=== PATIENT | female | born 2000 | race Caucasian/White ===

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

== ENCOUNTER 2021-02-16 22:03 | Observation (INO) ==
--- NOTE | 2021-02-16 22:23 | Emergency Department Note ---
History of Present Illness General Chief complaint: Illness Stated complaint: KIDNEY INFECTION, UTI, FEVER Time Seen by Provider: 02/16/21 22:09 Source: patient Mode of arrival: ambulatory Limitations: no limitations History of Present Illness Provider complaint: "I have a kidney infection" Maximum Pain Intensity: 8 This 20-year-old female patient presents to the emergency department today via private vehicle accompanied by her mother for evaluation of "I have a kidney infection". The patient states she was here earlier today and diagnosed with a urinary tract infection and pyelonephritis. She states admission was recommended, but she declined at that time and after IV hydration and antibiotics, was discharged on p.o. Bactrim. The patient states she is tolerating p.o. fluids without difficulty. She states this evening, she has experienced a fever of 104.2 F. She did take Tylenol approximately 1 hour ago and feels that the fever is breaking. The patient states she has been experiencing a headache and some abdominal cramping. Last menstrual period is unknown due to an IUD. Last bowel movement was 2 days ago. Patient reports ongoing back and flank pain. Patient denies any chest pain, dyspnea, dizziness, numbness, tingling, weakness, nausea, vomiting. Home Medications Medication Instructions Recorded Confirmed Type fluoxetine 10 mg PO HS 02/16/21 02/16/21 History levonorgestrel [Mirena] 20 mcg INTRAUTERINE CONTINOUS 02/16/21 02/16/21 History sulfamethoxazole-trimethoprim 1 tab PO BID 12 Days #24 tab 02/16/21 02/16/21 Rx [Bactrim DS] topiramate 50 mg PO HS 02/16/21 02/16/21 History Allergies Allergy/AdvReac Type Severity Reaction Status Date / Time No Known Allergies Allergy Verified 02/16/21 22:42 Past Med/Surg History Medical History History of anemia History of deviated nasal septum History of eustachian tube dysfunction Sore throat Upper respiratory infection Surgical History S/P correction of deviated nasal septum S/P tonsillectomy and adenoidectomy Family History (Updated 06/09/20 @ 11:15 by Lala Akers) Grandfather (Maternal) Colorectal cancer, Onset Age: 50 Family/Other Ovarian cancer maternal great grandmother Father No significant medical problems Mother No significant medical problems Other No pertinent family history Denies family history of Breast cancer Social History Smoking Status: Never smoker Hx Alcohol Use: No Hx Substance Use: No Preferred Language: Arabic Communication Ability: Effective marital status: Single Current Living Situation: Family Current Living Situation Comment: LIVES WITH MOM,DAD AND SISTER Feels Safe at Home: Yes Childhood Exposure to Second-Hand Smoke: No Dental Care, Regularly: Yes Seatbelt Use: always Sunscreen Use: Yes Review of Systems A total of 10 systems reviewed and were otherwise negative Physical Exam Vital Signs Vital Signs - 24 hr 02/16/21 22:06 02/16/21 22:26 02/16/21 23:06 Temperature 36.6 C Temperature Source Temporal Artery Scan Pulse Rate 91 H Pulse Rate [Finger] 96 H Respiratory Rate 18 20 Respiratory Effort / Characteristics Non-Labored Spontaneous Non-Labored Spontaneous Respiratory Depth Normal Normal Blood Pressure 99/48 L Blood Pressure [Right Arm] 99/57 L Blood Pressure Mean 65 Blood Pressure Mean [Right Arm] 71 Pulse Oximetry 98 98 Oxygen Delivery Method Room Air Room Air Room Air Sepsis Recent Fever Within 48 Hours No Sepsis New/Unexplained Change in Mental Status No Sepsis Action Taken by Nursing No Action Required VITALS: Vitals are noted on the nurse's note and reviewed by myself. Patient is hypotensive. Heart rate 91. Temp 36.6 C. GENERAL: This is a 20-year-old white female, in no acute distress, nondiaphoretic, well-developed well-nourished. SKIN: The skin was without rashes, erythema, edema, or bruising. There is no tenting of the skin. Capillary refill less than 2 seconds. HEAD: Normocephalic atraumatic. EYES: Conjunctivae without injection, sclerae without icterus. NECK: Supple without nuchal rigidity. No lymphadenopathy. No JVD. HEART: Regular rate and rhythm without murmurs gallops or rubs. LUNGS: Clear to auscultation bilaterally without wheezes, rales or rhonchi. No retractions or accessory muscle use. ABDOMEN: Positive bowel sounds x 4. Mild suprapubic tenderness palpation. Abdomen otherwise positive bilateral CVA tenderness. Soft, nontender, without masses or organomegaly. Gonzales sign negative. No guarding or rebound tendernes s. MUSCULOSKELETAL: No muscle atrophy, erythema, or edema noted. Full range of motion without joint tenderness in all extremities. No tenderness to palpation. Normal gait. Strength 5/5 throughout. NEURO: Patient was alert and oriented to person place and time. No focal neurological deficits. Course Course The patient was seen and evaluated as above. An order was placed for continuous cardiac monitoring. The monitor shows a normal sinus rhythm at a rate of 91 bpm. Previous medical records reviewed IV access obtained, labs drawn. Patient medicated with IV Toradol. Labs reviewed by myself. I discussed case with the ED foster care case manager. I discussed case with Dr. Duffy, [facility] hospitalist physician. Please see hospitalist dictation regarding ongoing management care of this patient. Administered Medications Sodium Chloride (Nss 1000ml) 1,000 mls @ 999 mls/hr IV .[id number] [id number] Stop: 02/17/21 00:00 Last Admin: 02/16/21 23:07 Dose: 999 mls/hr Documented by: [id number] Discontinued Medications Ketorolac Tromethamine (Ketorolac Tromethamine 15 Mg/Ml Vial) 15 mg IV NOW STA Stop: 02/16/21 22:26 Last Admin: 02/16/21 22:32 Dose: 15 mg Documented by: [id number] Medical Decision Making Differential Diagnosis Renal colic, UTI, appendicitis, diverticulitis, mesenteric ischemia, aortic pathology, infections, inflammatory bowel disease, PUD, biliary pathology, as well as other pathologies. Medical Records Attestation: I reviewed the patient's medical records. Home Medications Current Medication List: was personally reviewed by me Laboratory Data Attestation: I reviewed the patient's lab results. Leukocytosis of 19,000 with shift. Mild anemia with a hemoglobin of 10.5 and hematocrit of 30.8. This is suspected to be associated with fluid resuscitation completed earlier in the day. Renal, hepatic function electrolytes without significant abnormality. Urinalysis positive for 2+ leukocyte esterase, bacteria, but does appear to be contaminated specimen. Covid testing negative. Result diagrams: 02/16/21 22:13 02/16/21 22:13 Lab Results 02/16/21 02/16/21 02/16/21 Range/Units 22:13 22:13 22:29 WBC 19.06 H (4.8-10.8) K/uL RBC 3.64 L (4.2-5.4) M/uL Hgb 10.5 L D (12.0-16.0) g/dL Hct 30.8 L (37-47) % MCV 84.6 (80-100) fL MCH 28.8 (25-34) pg MCHC 34.1 (32-36) g/dL RDW Std Deviation 42.0 (36.4-46.3) fL RDW Coeff of Mayito 13.5 (11.5-14.5) % Plt Count 219 (130-400) K/uL MPV 9.4 (7.4-10.4) fL Immature Gran % (Auto) 0.3 % Neut % (Auto) 81.4 % Lymph % (Auto) 7.8 % Maury % (Auto) 10.4 % Eos % (Auto) 0.0 % Baso % (Auto) 0.1 % Neut # (Auto) 15.52 H (1.4-6.5) K/uL Lymph # (Auto) 1.48 (1.2-3.4) K/uL Maury # (Auto) 1.99 H (0.11-0.59) K/uL Eos # (Auto) 0.00 (0-0.5) K/uL Baso # (Auto) 0.02 (0-0.2) K/uL Immature Gran # (Auto) 0.05 H (0.00-0.02) K/uL Sodium 134 L (136-145) mmol/L Potassium 3.2 L (3.5-5.1) mmol/L Chloride 107 (98-107) mmol/L Carbon Dioxide 21 (21-32) mmol/L Anion Gap 6.0 (3-11) BUN 8 (7-18) mg/dl Creatinine 0.84 (0.6-1.2) mg/dl Est Cr Clr Drug Dosing 108.7 ml/min Est GFR ( Amer) 116.8 Est GFR (Non-Af Amer) 100.8 BUN/Creatinine Ratio 9.7 L (10-20) Glucose 123 H (70-99) mg/dl Calcium 8.1 L (8.5-10.1) mg/dl Total Bilirubin 0.6 (0.2-1) mg/dl AST 10 L (15-37) U/L ALT 11 L (12-78) U/L Alkaline Phosphatase 85 (45-117) U/L Total Protein 6.6 D (6.4-8.2) gm/dl Albumin 2.6 L (3.4-5.0) gm/dl Globulin 4.0 (2.5-4.0) gm/dl Albumin/Globulin Ratio 0.6 L (0.9-2) Urine Color Yellow Urine Appearance Clear (Clear) Urine pH 7.0 (4.5-7.5) Ur Specific Sultana 1.004 (1.000-1.030) Urine Protein Negative (Negative) Urine Glucose (UA) Negative (Negative) Urine Ketones Negative (Negative) Urine Blood Negative (Negative) Urine Nitrite Negative (Negative) Urine Bilirubin Negative (Negative) Urine Urobilinogen Negative (Negative) Ur Leukocyte Esterase 2+ H (Negative) Urine RBC 0-4 (0-4) /hpf Urine WBC 5-10 H (0-5) /hpf Ur Epithelial Cells 5-10 H (0-5) /lpf Urine Bacteria 2+ H (Negative) COVID-19 Eval Order SARS-CoV-2 (PCR) (Negative) Influenza Type A (PCR) (Neg) Influenza Type B (PCR) (Neg) RSV (RT-PCR) (Neg) 02/16/21 02/16/21 Range/Units 22:34 22:34 WBC (4.8-10.8) K/uL RBC (4.2-5.4) M/uL Hgb (12.0-16.0) g/dL Hct (37-47) % MCV (80-100) fL MCH (25-34) pg MCHC (32-36) g/dL RDW Std Deviation (36.4-46.3) fL RDW Coeff of Mayito (11.5-14.5) % Plt Count (130-400) K/uL MPV (7.4-10.4) fL Immature Gran % (Auto) % Neut % (Auto) % Lymph % (Auto) % Maury % (Auto) % Eos % (Auto) % Baso % (Auto) % Neut # (Auto) (1.4-6.5) K/uL Lymph # (Auto) (1.2-3.4) K/uL Maury # (Auto) (0.11-0.59) K/uL Eos # (Auto) (0-0.5) K/uL Baso # (Auto) (0-0.2) K/uL Immature Gran # (Auto) (0.00-0.02) K/uL Sodium (136-145) mmol/L Potassium (3.5-5.1) mmol/L Chloride (98-107) mmol/L Carbon Dioxide (21-32) mmol/L Anion Gap (3-11) BUN (7-18) mg/dl Creatinine (0.6-1.2) mg/dl Est Cr Clr Drug Dosing ml/min Est GFR ( Amer) Est GFR (Non-Af Amer) BUN/Creatinine Ratio (10-20) Glucose (70-99) mg/dl Calcium (8.5-10.1) mg/dl Total Bilirubin (0.2-1) mg/dl AST (15-37) U/L ALT (12-78) U/L Alkaline Phosphatase (45-117) U/L Total Protein (6.4-8.2) gm/dl Albumin (3.4-5.0) gm/dl Globulin (2.5-4.0) gm/dl Albumin/Globulin Ratio (0.9-2) Urine Color Urine Appearance (Clear) Urine pH (4.5-7.5) Ur Specific Sultana (1.000-1.030) Urine Protein (Negative) Urine Glucose (UA) (Negative) Urine Ketones (Negative) Urine Blood (Negative) Urine Nitrite (Negative) Urine Bilirubin (Negative) Urine Urobilinogen (Negative) Ur Leukocyte Esterase (Negative) Urine RBC (0-4) /hpf Urine WBC (0-5) /hpf Ur Epithelial Cells (0-5) /lpf Urine Bacteria (Negative) COVID-19 Eval Order CovFluRsv at [facility] SARS-CoV-2 (PCR) NEGATIVE (Negative) Influenza Type A (PCR) Negative (Neg) Influenza Type B (PCR) Negative (Neg) RSV (RT-PCR) Negative (Neg) Blood Pressure Blood Pressure Findings: Low blood pressure MDM Narrative This 20-year-old female patient presents to the emergency department today for evaluation of ongoing fever in the setting of pyelonephritis. She was here in the emergency department earlier today and diagnosed with pyelonephritis. She decided to go home to be managed as an outpatient, but when her fever had 104.2 F, she elected to come back to the emergency department for admission. Upon arrival to the ED, the patient blood pressure was 99/48. She was not tachycardic. She appeared well. She did have ongoing flank pain and lower abdominal pain. Patient had received 3 L of IV fluids earlier in the day at her previous ED visit. S she was treated while in the emergency department earlier today with IV Rocephin. He was medicated in the ED with Toradol to help with her headache and ongoing pain. Patient will be admitted to the [facility] hospitalist service. Please see hospitalist dictation regarding ongoing management and care of this patient. The chart was completed utilizing [employer] Speech voice recognition software. Grammatical errors, random word insertions, pronoun errors, and incomplete sentences are an occasional consequence of this system due to software limitat ions, ambient noise, and hardware issues. Any formal questions or concerns about the content, text, or information contained within the body of this dictation should be directly addressed to the provider for clarification. Impression & Plan Pyelonephritis, Sepsis Discharge Plan Visit Data Chief Complaint: Illness Stated Complaint: KIDNEY INFECTION, UTI, FEVER ED Provider: Zoran Ackerman ED Midlevel Provider: Leilani Butterfield Discharge Problem: Pyelonephritis, Sepsis Patient Disposition: Admitted As Inpatient Discharge Instructions Interventions: ED Discharge Assessment Last Done: 02/16/21 23:32 Forms Stand Alone Forms: My [facility] labs Prescriptions Prescriptions: No Action topiramate 25 mg tablet 50 mg PO HS RF: 0 fluoxetine 10 mg tablet 10 mg PO HS RF: 0 sulfamethoxazole-trimethoprim [Bactrim DS] 800-160 mg tablet 1 tab PO BID 12 Days Qty: 24 RF: 0 Mirena 20 mcg/24 hours (6 yrs) 52 mg Intrauterine Device 20 mcg INTRAUTERINE CONTINOUS RF: 0 Referrals Referrals: Madeleine Moise MD [Primary Care Provider] - Discharge Problem: Sepsis Qualifiers: Sepsis type: sepsis due to unspecified organism Sepsis acute organ dysfunction status: without acute organ dysfunction Qualified Code(s): A41.9 - Sepsis, unspecified organism
[2021-02-16] MEDS ORDERED: KETOROLAC TROMETHAMINE 15 MG/ML VIAL IV STA (22:25)
[2021-02-16 22:41] LABS: Appearance Urine Clear (Clear); Bilirubin Urine Negative (Negative); Blood Urine Negative (Negative); Color Urine Yellow; Glucose Urine UA Negative (Negative); Ketones Urine Negative (Negative); Leukocyte Esterase Urine 2+ (Negative); Nitrite Urine Negative (Negative); Protein Urine Negative (Negative); Specific Gravity Urine 1.004 (1.000-1.030); Urobilinogen Urine Negative (Negative)
[2021-02-16 22:51] LABS: Albumin Level 2.6 gm/dl (3.4-5.0); BUN Creatinine Ratio 9.7 (10-20); Calcium 8.1 mg/dl (8.5-10.1); Creatinine Clr Calc Pharmacy 108.7 ml/min; Est GFR (African American) 116.8; Est GFR (Non-African American) 100.8; Potassium 3.2 mmol/L (3.5-5.1)
[2021-02-16 22:56] LABS: Albumin Globulin Ratio 0.6 (0.9-2); Bilirubin,Total 0.6 mg/dl (0.2-1); Total Protein 6.6 gm/dl (6.4-8.2)
[2021-02-16 22:57] LABS: Bacteria Urine 2+ (Negative)
[2021-02-16 23:00] LABS: RBC Urine 0-4 /hpf (0-4)
[2021-02-16] MEDS ORDERED: SODIUM CHLORIDE 0.9% 1000ML 1,000 ML IV SCH (23:00)
--- NOTE | 2021-02-16 23:03 | History & Physical Report ---
Date of Service February 16, 2021 Assessment & Plan (1) Pyelonephritis: Otherwise healthy 20 yo F admitted for acute pyelonephritis. Pyelonephritis - CT A/P identifying perinephric stranding matching with dirty UA, CVA tenderness, fevers indicating pyelonephritis - ceftriaxone - trend wbc 19k - urine, blood cultures pending - cont maintenance fluid management - zofran prn nausea - tylenol/ibuprofen for fever, toradol pain as long as Cr WNL Anxiety - cont fluoxetine Migraines - cont topamax Control - cont home OCP DVT ppx: low risk, walk ad arvind FEN/GI: NS Code Status: full code Dispo: med/surg (2) Back pain: History of Present Illness 20 yo F in ER after presenting earlier today for abdominal cramping and fevers. Found to have pyelonephritis, recommended admission, patient insisted on going home & was sent home with bactrim. Returned in evening due to persistent fevers up to 104F. States she "cracked her back" abruptly thursday 02/15, attributed back pain to that. yesterday started feeling nauseous, having abodminal pain and cramping. Fevers up to 103-104F. Minimal response to tylenol and ibuprofen at home. No dysuria/polyuria/hematuria. Mom concerned about meningitis given that she also has a headache. Patient states the bright lights hurt her eyes but this also happens with her migraines. no sensitivity to loud noises. Mild neck pain with moving around but mostly muscular in origin. UTD with vaccinations including both meningitis series. No sick contacts. ER course significant for: negative CT lumbar spine, Ct A/P indicative for Bl perinephric stranding related to pyelonephritis. Bolused 3L fluid in afternoon, 1 additional liter in evening. Ceftriaxone. Primary Care Provider: Madeleine Moise MD Allergies Allergy/AdvReac Type Severity Reaction Status Date / Time No Known Allergies Allergy Verified 02/16/21 22:42 Home Medications Medication Instructions Recorded Confirmed Type fluoxetine 10 mg PO HS 02/16/21 02/16/21 History levonorgestrel [Mirena] 20 mcg INTRAUTERINE CONTINOUS 02/16/21 02/16/21 History sulfamethoxazole-trimethoprim 1 tab PO BID 12 Days #24 tab 02/16/21 02/16/21 Rx [Bactrim DS] topiramate 50 mg PO HS 02/16/21 02/16/21 History Past Med/Surg History Medical History (Updated 02/17/21 @ 05:12 by Brittney Perdomo MD) Chronic migraine without aura saw [facility] [place] neuro - 03/28 Rx Topamax qhs and Relpax prn f/u couple months Deviated nasal septum History of anemia History of deviated nasal septum History of eustachian tube dysfunction Hypercholesteremia Obsessive compulsive disorder Tic disorder Surgical History S/P correction of deviated nasal septum S/P tonsillectomy and adenoidectomy Family History (Updated 06/09/20 @ 11:15 by Lala Akers) Grandfather (Maternal) Colorectal cancer, Onset Age: 50 Family/Other Ovarian cancer maternal great grandmother Father No significant medical problems Mother No significant medical problems Other No pertinent family history Denies family history of Breast cancer Social History Smoking Status: Never smoker Hx Alcohol Use: No Hx Substance Use: No Preferred Language: Belgian Communication Ability: Effective Colliery Clerk Required: No Beliefs That Will Affect Care: None marital status: Single Current Living Situation: Family Current Living Situation Comment: LIVES WITH MOM,DAD AND SISTER Other Information That Helps Us Care for You: No Feels Safe at Home: Yes Safety Concerns: Feels Safe At This Time Childhood Exposure to Second-Hand Smoke: No Dental Care, Regularly: Yes Seatbelt Use: always Sunscreen Use: Yes Assistive Devices: None Review of Systems Constitutional: + fever, + chills and + sweats; no fatigue Eyes: no blind spots and no discharge Ear, Nose, Mouth, Throat: no hearing loss and no nasal congestion Respiratory: no cough and no dyspnea Cardiovascular: no chest pain, no dyspnea on exertion and no edema Gastrointestinal: + nausea; no abdominal pain, no vomiting, no constipation, no diarrhea/loose stools and no blood in stools Genitourinary: no dysuria Musculoskeletal: no joint pain and no myalgia Neurologic: no tingling, no numbness and no headache(s) Endocrine: + fatigue Physical Exam Physical Exam: Constitutional: thin young female laying in bed comfortably Eyes: EOMI, pupils equal and reactive bilaterally, no scleral icterus Cardiac: RRR, no murmurs, gallops or rubs. Normal S1, S2 Pulm: CTA BL, no wheezes, rhonchi, crackles or rubs, moving air well throughout both lungs Abd: soft, mildly tender in suprapubic and RLQ, nondistended, normal bowel sounds, no rebound or guarding Back: CVA tenderness BL Extremities: 2+ peripheral pulses, no edema Neuro: no focal deficits, moving all 4 limbs, A&Ox3 Results & Data Results & Data ([facility]) Vital Signs (Past 12 Hours) Vital Signs Temp Pulse Resp BP Pulse Ox 02/16/21 22:06 36.6 C 91 H 18 99/48 L 98 Laboratory Results WBC 19.06 K/uL (4.8-10.8) H 02/16/21 22:13 RBC 3.64 M/uL (4.2-5.4) L 02/16/21 22:13 Hgb 10.5 g/dL (12.0-16.0) L D 02/16/21 22:13 Hct 30.8 % (37-47) L 02/16/21 22:13 MCV 84.6 fL (80-100) 02/16/21 22:13 MCH 28.8 pg (25-34) 02/16/21 22:13 MCHC 34.1 g/dL (32-36) 02/16/21 22:13 RDW Std Deviation 42.0 fL (36.4-46.3) 02/16/21 22:13 RDW Coeff of Mayito 13.5 % (11.5-14.5) 02/16/21 22:13 Plt Count 219 K/uL (130-400) 02/16/21 22:13 MPV 9.4 fL (7.4-10.4) 02/16/21 22:13 Immature Gran % (Auto) 0.3 % 02/16/21 22:13 Neut % (Auto) 81.4 % 02/16/21 22:13 Lymph % (Auto) 7.8 % 02/16/21 22:13 Travis % (Auto) 10.4 % 02/16/21 22:13 Eos % (Auto) 0.0 % 02/16/21 22:13 Baso % (Auto) 0.1 % 02/16/21 22:13 Neut # (Auto) 15.52 K/uL (1.4-6.5) H 02/16/21 22:13 Lymph # (Auto) 1.48 K/uL (1.2-3.4) 02/16/21 22:13 Travis # (Auto) 1.99 K/uL (0.11-0.59) H 02/16/21 22:13 Eos # (Auto) 0.00 K/uL (0-0.5) 02/16/21 22:13 Baso # (Auto) 0.02 K/uL (0-0.2) 02/16/21 22:13 Immature Gran # (Auto) 0.05 K/uL (0.00-0.02) H 02/16/21 22:13 Sodium 134 mmol/L (136-145) L 02/16/21 22:13 Potassium 3.2 mmol/L (3.5-5.1) L 02/16/21 22:13 Chloride 107 mmol/L (98-107) 02/16/21 22:13 Carbon Dioxide 21 mmol/L (21-32) 02/16/21 22:13 Anion Gap 6.0 (3-11) 02/16/21 22:13 BUN 8 mg/dl (7-18) 02/16/21 22:13 Creatinine 0.84 mg/dl (0.6-1.2) 02/16/21 22:13 Est Cr Clr Drug Dosing 108.7 ml/min 02/16/21 22:13 Est GFR ( Amer) 116.8 02/16/21 22:13 Est GFR (Non-Af Amer) 100.8 02/16/21 22:13 BUN/Creatinine Ratio 9.7 (10-20) L 02/16/21 22:13 Glucose 123 mg/dl (70-99) H 02/16/21 22:13 Calcium 8.1 mg/dl (8.5-10.1) L 02/16/21 22:13 Total Bilirubin 0.6 mg/dl (0.2-1) 02/16/21 22:13 AST 10 U/L (15-37) L 02/16/21 22:13 ALT 11 U/L (12-78) L 02/16/21 22:13 Alkaline Phosphatase 85 U/L (45-117) 02/16/21 22:13 Total Protein 6.6 gm/dl (6.4-8.2) D 02/16/21 22:13 Albumin 2.6 gm/dl (3.4-5.0) L 02/16/21 22:13 Globulin 4.0 gm/dl (2.5-4.0) 02/16/21 22:13 Albumin/Globulin Ratio 0.6 (0.9-2) L 02/16/21 22:13 Urine Color Yellow 02/16/21 22: Urine Appearance Clear (Clear) 02/16/21 22: Urine pH 7.0 (4.5-7.5) 02/16/21 22: Ur Specific [place] 1.004 (1.000-1.030) 02/16/21 22: Urine Protein Negative (Negative) 02/16/21 22: Urine Glucose (UA) Negative (Negative) 02/16/21 22: Urine Ketones Negative (Negative) 02/16/21 22: Urine Blood Negative (Negative) 02/16/21 22: Urine Nitrite Negative (Negative) 02/16/21 22: Urine Bilirubin Negative (Negative) 02/16/21 22: Urine Urobilinogen Negative (Negative) 02/16/21 22: Ur Leukocyte Esterase 2+ (Negative) H 02/16/21 22:29 Urine RBC 0-4 /hpf (0-4) 02/16/21 22:29 Urine WBC 5-10 /hpf (0-5) H 02/16/21 22:29 Ur Epithelial Cells 5-10 /lpf (0-5) H 02/16/21 22:29 Urine Bacteria 2+ (Negative) H 02/16/21 22:29 COVID-19 Eval Order CovFluRsv at [facility] 02/16/21 22:34 SARS-CoV-2 (PCR) NEGATIVE (Negative) 02/16/21 22:34 Influenza Type A (PCR) Negative (Neg) 02/16/21 22:34 Influenza Type B (PCR) Negative (Neg) 02/16/21 22:34 RSV (RT-PCR) Negative (Neg) 02/16/21 22:34 Supervising Physician Co-Signing Physician Notes Attending addendum: I have physically seen this patient, have supervised the medical residents activities, and agree with the H&P unless as otherwise noted. Assessment and Plan: Pyelonephritis- CT A/P with perinephric stranding of kidneys- Continue empiric ceftriaxone 1 g IV daily Follow serial CBC with differential and BMP Follow urine culture and sensitivity IV fluids Anxiety- Continue fluoxetine Migraine- Continue Topamax Remaining orders and notations as noted Resident Activity Tracking Resident Involvement: Resident Care Provided Care Provided: Adult Hospital Medicine (1) Back pain Back pain laterality: bilateral Back pain location: low back pain Chronicity: acute Sciatica presence: unspecified whether sciatica present Qualified Code(s): M54.5 - Low back pain
[2021-02-16 23:05] LABS: Basophils # (auto) 0.02 K/uL (0-0.2); Basophils % (auto) 0.1 %; Hematocrit (blood only) 30.8 % (37-47); Hemoglobin 10.5 g/dL (12.0-16.0); Immature Granulocytes # (auto) 0.05 K/uL (0.00-0.02); Immature Granulocytes % (auto) 0.3 %; Lymphocytes # (auto) 1.48 K/uL (1.2-3.4); Lymphocytes % (auto) 7.8 %; Mean Corpuscular Hemoglobin 28.8 pg (25-34); Mean Corpuscular Hgb Conc 34.1 g/dL (32-36); Mean Corpuscular Volume 84.6 fL (80-100); Mean Platelet Volume 9.4 fL (7.4-10.4); Monocytes # (auto) 1.99 K/uL (0.11-0.59); Monocytes % (auto) 10.4 %; Neutrophils # (auto) 15.52 K/uL (1.4-6.5); Neutrophils % (auto) 81.4 %; Platelet Count 219 K/uL (130-400); RDW Coefficient of Variation 13.5 % (11.5-14.5); Red Blood Count 3.64 M/uL (4.2-5.4); White Blood Count 19.06 K/uL (4.8-10.8)
[2021-02-16 23:18] LABS: Influenza A virus by PCR Negative (Neg); Influenza B virus by PCR Negative (Neg); RSV by PCR Negative (Neg); SARS CoV2 RNA(COVID-19) InHosp NEGATIVE (Negative)
[2021-02-17] MEDS ORDERED: POLYETHYLENE (MIRALAX) 17 GM PACK PO PRN (00:07)
[2021-02-17] MEDS ORDERED: LEVONORGESTREL PO PRN (00:45)
[2021-02-17] MEDS: KETOROLAC TROMETHAMINE 15 MG/ML VIAL IV PRN ×3 (06:01→20:26)
[2021-02-17] MEDS ORDERED: POTASSIUM CHLORIDE CRTAB 20 MEQ TABCR PO ONE (07:00)
[2021-02-17] MEDS ORDERED: SODIUM CHLORIDE 0.9% 1000ML 1,000 ML IV ONE ×2 (07:16→11:31)
[2021-02-17 07:19] LABS: Hematocrit (blood only) 30.3 % (37-47); Hemoglobin 10.3 g/dL (12.0-16.0); Mean Corpuscular Volume 85.4 fL (80-100); Mean Platelet Volume 9.3 fL (7.4-10.4); Platelet Count 213 K/uL (130-400); RDW Coefficient of Variation 13.7 % (11.5-14.5); RDW Standard Deviation 43.1 fL (36.4-46.3); Red Blood Count 3.55 M/uL (4.2-5.4); White Blood Count 17.92 K/uL (4.8-10.8)
[2021-02-17] MEDS: ACETAMINOPHEN 325 MG TAB PO PRN (07:20)
[2021-02-17 07:59] LABS: Basophils # (auto) 0.02 K/uL (0-0.2); Basophils % (auto) 0.1 %; Eosinophils # (auto) 0.01 K/uL (0-0.5); Eosinophils % (auto) 0.1 %; Immature Granulocytes # (auto) 0.04 K/uL (0.00-0.02); Immature Granulocytes % (auto) 0.2 %; Lymphocytes # (auto) 1.18 K/uL (1.2-3.4); Lymphocytes % (auto) 6.6 %; Monocytes # (auto) 1.95 K/uL (0.11-0.59); Monocytes % (auto) 10.9 %; Neutrophils # (auto) 14.72 K/uL (1.4-6.5); Neutrophils % (auto) 82.1 %
[2021-02-17 08:00] LABS: BUN Creatinine Ratio 11.7 (10-20); Calcium 7.7 mg/dl (8.5-10.1); Creatinine Clr Calc Pharmacy 134.2 ml/min; Est GFR (Non-African American) 126.8; Potassium 3.4 mmol/L (3.5-5.1)
--- NOTE | 2021-02-17 08:48 | Hospitalist Progress Note ---
Date of Service February 17, 2021 Assessment & Plan (1) Pyelonephritis: Otherwise healthy 20 yo F admitted on 02/16/21 for acute pyelonephritis. Sepsis - SIRS criteria met on admission (WBC, fever) - source: pyelonephritis - urine and blood cultures pending, showing no growth to date. Follow - continue IV Ceftriaxone - 1 liter of normal saline given on admission; additional liter ordered today; maintain MAP > 65 Pyelonephritis - UA on admission 2+ bacteria, 2+ LE, + nitrites. - Urine culture pending. - WBC elevated to 19 on admission, down to 17 today. - CT A/P showing bilateral perinephric stranding; no abscesses - Continue IV ceftriaxone (currently on day 2) - zofran prn nausea - tylenol/toradol for pain or fever prn Leukocytosis - WBC elevated to 19K on admission, down to 17 today - suspect secondary to acute pyelonephritis as above - continue abx as above - trend Anxiety - cont home dose fluoxetine Migraines - cont home dose topamax for prevention DVT ppx: low risk, ambulating, SCDs while in bed. FEN/GI: Regular Code Status: full code Dispo: med/surg (2) Back pain: Admission and Anticipated Discharge Date Admission Date: February 16, 2021 Supervising Physician Co-Signing Physician Notes I personally examined the patient and verified all agarwal points of history and exam, discussed case, and agree with decision making with Dr Schmidt. Feeling better. Less pain less nausea. Vitals noted, in general she is awake and alert pleasant no distress. HEENT normocephalic atraumatic mucous membranes moist. Breathing unlabored no accessory muscle use good effort. Skin shows no rashes no pallor or icterus. Pyelonephritis (bilateral) with sepsis present on admissioncontinue ceftriaxone, improving. Otherwise as above. Subjective Patient reports feeling well - when discussing her current diagnosis, she denies noticing any preceding dysuria, urinary frequency or urgency. She is sexually active but always urinates after intercourse. She always uses condoms for barrier protection, but she also has a Mirena IUD in place. She has no prior UTIs. Review of Systems Constitutional: + fever Gastrointestinal: Bilateral flank pain Physical Exam 2 Constitutional: WD/WN, vitals as above cooperative; no acute distress Eyes: + anicteric sclerae ENMT: external ear and nose normal, oropharynx normal Neck: normal visual inspection and trachea midline Respiratory: normal respiratory effort, lungs clear to auscultation Cardiovascular: Rate/Rhythm: regular rhythm and + tachycardic Heart Sounds: normal S1 and normal S2 Extremities: no pedal edema Gastrointestinal (Abdomen): Inspection/Auscultation: abdomen normal to inspection and normal bowel sounds; abdomen not distended Percussion/Palpation: + abdomen tender (bilateral lower quadrants) and abdomen soft; no guarding Musculoskeletal: + bilateral CVA tenderness Skin: no rashes, warm and dry Psychiatric: A+Ox3, euthymic affect Results & Data Results & Data ([facility]) Vital Signs (Past 12 Hours) Vital Signs Temp Pulse Pulse Resp BP BP Pulse Ox 02/17/21 06:54 37.7 C H 96 H 17 93/51 L 94 02/17/21 00:08 36.8 C 109 H 20 98/59 L 100 02/16/21 23:06 96 H 20 99/57 L 98 02/16/21 22:06 36.6 C 91 H 18 99/48 L 98 Resident Activity Tracking Resident Involvement: Resident Care Provided Care Provided: Adult Hospital Medicine (1) Back pain Back pain laterality: bilateral Back pain location: low back pain Chronicity: acute Sciatica presence: unspecified whether sciatica present Qualified Code(s): M54.5 - Low back pain
[2021-02-17] MEDS ORDERED: MELATONIN 3 MG TAB PO PRN (08:55)
[2021-02-17] MEDS: SODIUM CHLORIDE 0.9% 1000ML 1,000 ML IV SCH ×2 (10:02→18:10)
[2021-02-17] MEDS: cefTRIAXone SODIUM 1,000 MG in DEXTROSE 5% 50 ML IV SCH (11:31)
[2021-02-17] MEDS: ONDANSETRON INJ 2 MG/ML 2 ML VIAL IV PRN ×2 (14:36→20:30)
--- NOTE | 2021-02-17 20:36 | Billing Data ---
Date of Service February 17, 2021 Coding Level of Care Code 64209 Subseq Obs Care Lvl 3
[2021-02-17] MEDS ORDERED: FLUoxetine HCL 10 MG CAP PO SCH (21:00)
[2021-02-17] MEDS ORDERED: TOPIRAMATE 50 MG TAB PO SCH (21:00)
--- NOTE | 2021-02-17 22:46 | Billing Data ---
Date of Service February 17, 2021 Coding Level of Care Code 81132 OBS Care - Level 3
[2021-02-18] MEDS: ACETAMINOPHEN 325 MG TAB PO PRN (01:54)
[2021-02-18] MEDS: KETOROLAC TROMETHAMINE 15 MG/ML VIAL IV PRN ×2 (02:30→11:30)
[2021-02-18 06:03] LABS: Basophils # (auto) 0.02 K/uL (0-0.2); Basophils % (auto) 0.1 %; Eosinophils # (auto) 0.04 K/uL (0-0.5); Eosinophils % (auto) 0.3 %; Hematocrit (blood only) 30.3 % (37-47); Hemoglobin 10.2 g/dL (12.0-16.0); Immature Granulocytes # (auto) 0.05 K/uL (0.00-0.02); Immature Granulocytes % (auto) 0.3 %; Lymphocytes # (auto) 1.83 K/uL (1.2-3.4); Lymphocytes % (auto) 11.6 %; Mean Corpuscular Hemoglobin 28.1 pg (25-34); Mean Corpuscular Hgb Conc 33.7 g/dL (32-36); Mean Corpuscular Volume 83.5 fL (80-100); Mean Platelet Volume 9.9 fL (7.4-10.4); Monocytes # (auto) 1.38 K/uL (0.11-0.59); Monocytes % (auto) 8.8 %; Neutrophils # (auto) 12.41 K/uL (1.4-6.5); Neutrophils % (auto) 78.9 %; Platelet Count 237 K/uL (130-400); RDW Coefficient of Variation 13.6 % (11.5-14.5); RDW Standard Deviation 41.8 fL (36.4-46.3); Red Blood Count 3.63 M/uL (4.2-5.4); White Blood Count 15.73 K/uL (4.8-10.8)
[2021-02-18 06:33] LABS: BUN Creatinine Ratio 12.2 (10-20); Blood Urea Nitrogen 7 mg/dl (7-18); Calcium 8.2 mg/dl (8.5-10.1); Carbon Dioxide 18 mmol/L (21-32); Chloride 114 mmol/L (98-107); Creatinine Clr Calc Pharmacy 160.1 ml/min; Est GFR (African American) > 150.0 ml/min; Est GFR (Non-African American) 134.4 ml/min; Glucose 84 mg/dl (70-99); Potassium 3.6 mmol/L (3.5-5.1); Sodium 139 mmol/L (136-145)
[2021-02-18] MEDS ORDERED: SODIUM CHLORIDE 0.9% 1000ML 1,000 ML IV SCH (06:45)
[2021-02-18 06:50] LABS: Toxic Granulation 1+
[2021-02-18] MEDS: cefTRIAXone SODIUM 1,000 MG in DEXTROSE 5% 50 ML IV SCH (11:30)
--- NOTE | 2021-02-18 13:23 | Discharge Summary ---
Date of Service February 18, 2021 Admission HPI Per Admitting Provider 20 yo F in ER after presenting earlier today for abdominal cramping and fevers. Found to have pyelonephritis, recommended admission, patient insisted on going home & was sent home with bactrim. Returned in evening due to persistent fevers up to 104F. States she "cracked her back" abruptly thursday 02/15, attributed back pain to that. yesterday started feeling nauseous, having abodminal pain and cramping. Fevers up to 103-104F. Minimal response to tylenol and ibuprofen at home. No dysuria/polyuria/hematuria. Mom concerned about meningitis given that she also has a headache. Patient states the bright lights hurt her eyes but this also happens with her migraines. no sensitivity to loud noises. Mild neck pain with moving around but mostly muscular in origin. UTD with vaccinations including both meningitis series. No sick contacts. ER course significant for: negative CT lumbar spine, Ct A/P indicative for Bl perinephric stranding related to pyelonephritis. Bolused 3L fluid in afternoon, 1 additional liter in evening. Ceftriaxone. Admission Exam Per Admitting Provider Constitutional: thin young female laying in bed comfortably Eyes: EOMI, pupils equal and reactive bilaterally, no scleral icterus Cardiac: RRR, no murmurs, gallops or rubs. Normal S1, S2 Pulm: CTA BL, no wheezes, rhonchi, crackles or rubs, moving air well throughout both lungs Abd: soft, mildly tender in suprapubic and RLQ, nondistended, normal bowel sounds, no rebound or guarding Back: CVA tenderness BL Extremities: 2+ peripheral pulses, no edema Neuro: no focal deficits, moving all 4 limbs, A&Ox3 Principal Diagnosis Pyleonephritis Discharge Exam Constitutional WD/WN, vitals as above cooperative; no acute distress Eyes + anicteric sclerae ENMT external ear and nose normal, oropharynx normal Neck normal visual inspection and trachea midline Respiratory normal respiratory effort, lungs clear to auscultation Cardiovascular Rate/Rhythm: regular rhythm and + tachycardic Heart Sounds: normal S1 and normal S2 Extremities: no pedal edema Gastrointestinal (Abdomen) Inspection/Auscultation: abdomen normal to inspection and normal bowel sounds; abdomen not distended Percussion/Palpation: + abdomen tender (bilateral lower quadrants) and abdomen soft; no guarding Skin no rashes, warm and dry Psychiatric A+Ox3, euthymic affect Discharge Data Allergies Allergy/AdvReac Type Severity Reaction Status Date / Time No Known Allergies Allergy Verified 02/16/21 22:42 Consultations 02/16/21 22:14 ED Decision to Admit Stat Hospital Course (1) Pyelonephritis: Otherwise healthy 20 yo F admitted on 02/16/21 for acute pyelonephritis. Sepsis - resolved - SIRS criteria met on admission (WBC, fever) - source: pyelonephritis - Blood cultures pending were drawn on admission, showed no growth by discharge - patient was volume resuscitated and treated with IV Ceftriaxone - patient demonstrated quick improvement on the above therapy Pyelonephritis - improving - UA on admission 2+ bacteria, 2+ LE, + nitrites. - Urine culture positive for e.coli (sensitive to all but ciprofloxacin) - WBC elevated to 19 on admission, down to 15 by the time of discharge - CT A/P showing bilateral perinephric stranding; no abscesses - treated with 2 days of IV ceftriaxone; discharged with 8 day course of Cefdinir 300mg, BID (for total of 10 day antibiotic duration) Leukocytosis - improving - WBC elevated to 19K on admission, down to 15 by the time of discharge - suspect secondary to acute pyelonephritis as above Anxiety - cont home dose fluoxetine Migraines - cont home dose topamax for prevention (2) Back pain: Total Time Total Time Spent Total Time Spent (In Minutes): <30 Discharge Plan Discharge Items Patient Disposition: Home - Self-Care Reason For Visit: PYELONPHRITIS Discharge Diagnosis: Pyelonephritis Activity: Resume your previous activity Non-emergency contact: Primary Care Provider Call non-emergency contact if: you have any medication questions Follow-up/Referrals: Madeleine Moise MD [Primary Care Provider] - Diet: Regular Addtl Attending Provider Instructions: You were hospitalized at [facility] for evaluation of a kidney infection (known as pyelonephritis). This infection likely started as a simple urinary tract infection - and over time the bacteria worked their way up to your kidneys. You were treated with IV antibiotics and IV fluids while you were under our care. Your urine culture grew e.coli (the most common urinary bacterial pathogen). Fortunately, by the time you left the hospital, your blood cultures showed no evidence of bacteria (no bacteria leaked from the urine to the blood stream). We will continue to watch the cultures for 5 days - if they become positive after you leave the hospital, we will contact you over the phone. Please continue the antibiotic Cefdinir 300mg, twice daily for the next 8 days. It is necessary to completely treat the infection. We also recommend you continue to stay well hydrated - please drink at least 60-80 ounces of water per day. If you get a fever after leaving the hospital - do not panic. We discussed how this infection may cause "waxing and waning" symptoms until it is totally treated. It may take several weeks until you feel totally back to baseline self. Please contact Dr. Samuel Santoyo at [email or web address] to set up a hospital shadowing experience in the future! Pending Studies at Discharge: Yes Stand-Alone Forms: [facility] Cess[facility] Medications and DC Order Prescriptions: New cefdinir 300 mg capsule 300 mg PO BID 8 Days Qty: 16 RF: 0 Continued topiramate 25 mg tablet 50 mg PO HS RF: 0 fluoxetine 10 mg tablet 10 mg PO HS RF: 0 Mirena 20 mcg/24 hours (6 yrs) 52 mg Intrauterine Device 20 mcg INTRAUTERINE CONTINOUS RF: 0 Discontinued sulfamethoxazole-trimethoprim [Bactrim DS] 800-160 mg tablet 1 tab PO BID 12 Days Qty: 24 RF: 0 Discharge Orders: Discharge Order (Routine); Ordered 02/18/21 Ordered By: Mralen Cano/Other Patient Handouts: Anatomy of the Female Urinary Tract, Pyelo nephritis Ch Dc Admission Data Admit Date/Time: 02/16/21 22:57 Attending Provider: Samuel Santoyo Admit Provider: Brittney Perdomo Primary Care Provider: Madeleine Moise Other Providers: Edwin Duffy Other Interventions: Discharge Summary Assessment (RN) Last Done: 02/18/21 10:46 Supervising Physician Co-Signing Physician Notes I personally examined the patient and verified all agarwal points of history and exam, discussed case, and agree with decision making with Dr Schmidt. feels better overall pain and nausea better. overall doing well feels up to going home Vitals noted, in general she is awake and alert pleasant no distress. HEENT normocephalic atraumatic mucous membranes moist. Breathing unlabored no accessory muscle use good effort. Skin shows no rashes no pallor or icterus. Pyelonephritis (bilateral) with sepsis present on admissionE Coli sensitive to cephalosporins. improved on cetriaxone. stable for home on cefdinir. outpt f/u. otherwise as above Resident Activity Tracking Resident Involvement: Resident Care Provided Care Provided: Adult Hospital Medicine
--- NOTE | 2021-02-18 18:13 | Billing Data ---
Date of Service February 18, 2021 Coding Level of Care Code 02512 OBS Care - Discharge
== END 2021-02-18 13:26 | disposition home or self-care (01) ==
LOC: 3W 22:03 → ED 22:03 → SUATTDRO 22:57 → 3W 23:32
DX: N12 Tubulo-interstitial nephritis, not specified as acute or chronic; Z79.3 Long term (current) use of hormonal contraceptives; M54.5 Low back pain; Z79.899 Other long term (current) drug therapy